=== PATIENT | male | born 1955 | race Two or more races ===

== ENCOUNTER 2018-06-21 19:39 | Inpatient (IN) | payer OTHER ==
[~2018-06-21] VITALS: Ht 180.3 cm; Wt 117.0 kg
[2018-06-21 20:32] LABS: Basophils # (auto) 0 uL; Basophils % (auto) 0.7 % (0.0-2.0); Eosinophils # (auto) 0.1 uL; Eosinophils % (auto) 1.1 % (0.0-7.0); Hematocrit 39.7 % (41.0-53.0); Hemoglobin 14.1 g/dL (13.5-17.5); Lymphocytes # (auto) 2.5 uL; Lymphocytes % (auto) 37.1 % (10.0-50.0); Mean Corpuscular Hemoglobin 32.9 pg (28.0-32.0); Mean Corpuscular Hgb Conc. 35.5 g/dL (32.0-36.0); Mean Corpuscular Volume 92.8 fL (80.0-100.0); Monocytes # (auto) 0.5 uL; Monocytes % (auto) 7.8 % (0.0-12.0); Neutrophils # (auto) 3.5 uL; Neutrophils % (auto) 53.3 % (37.0-80.0); Nucleated Red Blood Cells % 0.1 %; Platelet Count (auto) 221 10^3/uL (140-450); Red Blood Cells 4.27 10^6/uL (4.5-5.90); Red Cell Distribution Width 14.1 % (11.8-14.3); White Blood Cell 6.6 10^3/uL (4.4-10.8)
[2018-06-21 20:45] LABS: INR 1.07 (0.9-1.15); Partial Thromboplastin Time 26.6 sec (23.78-33.04); Prothrombin Time 11.4 sec (9.27-12.13)
[2018-06-21] MEDS ORDERED: MORPHINE SULFATE 4 MG/ML SYR/VIAL IV ONE (20:45)
[2018-06-21] MEDS ORDERED: ONDANSETRON HCL 4 MG/2 ML VIAL IV ONE (20:45)
[2018-06-21 20:55] LABS: Albumin 4.1 g/dL (3.4-5.0); Anion Gap 8 (5-15); Blood Urea Nitrogen 21 mg/dL (7-18); Calcium 8.9 mg/dL (8.5-10.1); Carbon Dioxide 23 mmol/L (21-32); Chloride 106 mmol/L (98-107); Glucose 110 mg/dL (74-106); Magnesium 1.4 mg/dL (1.6-2.6); Potassium 3.5 mmol/L (3.5-5.1); Sodium 137 mmol/L (136-145)
[2018-06-21 21:01] LABS: Alanine Aminotransferase 48 U/L (16-61); Alkaline Phosphatase 99 U/L (45-117); Aspartate Aminotransferase 37 U/L (15-37); BUN/Creatinine Ratio 18.3; Bilirubin, Total 0.5 mg/dL (0.2-1.0); GFR African American 82 mL/min; GFR Non-African American 68 mL/min; Total Protein 7.6 g/dL (6.4-8.2)
[2018-06-21 22:00] VITALS: BP 135/83
[2018-06-21] MEDS ORDERED: HEPARIN SODIUM (PORCINE) 5000 UNITS/ML 1ML VIAL IV ONE (22:00)
[2018-06-21] MEDS ORDERED: ASPirin 81 mg TAB PO ONE (22:00)
[2018-06-21] MEDS ORDERED: MORPHINE SULFATE 4 MG/ML SYR/VIAL IV PRN (22:30)
[2018-06-21] MEDS ORDERED: ASPirin-EC 325mg tab PO ONE (22:30)
[2018-06-21] MEDS ORDERED: NITROGLYCERIN 0.4 MG SL TAB SL PRN (22:30)
[2018-06-21] MEDS ORDERED: ONDANSETRON HCL 4 MG/2 ML VIAL IV PRN (22:30)
[2018-06-22 00:10] VITALS: BP 135/83
[2018-06-22] MEDS ORDERED: CLOP75TA28 PO (00:32)
[2018-06-22] MEDS ORDERED: ISO20T PO (00:32)
[2018-06-22] MEDS ORDERED: ACET-1603 PO (00:32)
[2018-06-22] MEDS ORDERED: ATOR1TAB PO (00:32)
[2018-06-22] MEDS ORDERED: METF-372 PO (00:32)
[2018-06-22] MEDS ORDERED: NITR0.4S29 SL (00:32)
[2018-06-22] MEDS ORDERED: ATE50T PO (00:32)
[2018-06-22] MEDS ORDERED: LISI-285 PO (00:32)
[2018-06-22] MEDS ORDERED: ALL100T PO (00:32)
[2018-06-22] MEDS ORDERED: COLC0.6T56 PO (00:32)
[2018-06-22 05:31] VITALS: BP 106/51
[2018-06-22] MEDS ORDERED: IODIXANOL 320MG/ML 100ML BTL IV ONE (07:25)
[2018-06-22] MEDS ORDERED: LIDOCAINE 2%HCL (LOCAL ANESTH.) INJ 20ML MDV ONE (07:26)
[2018-06-22] MEDS ORDERED: MIDAZOLAM HCL 1MG/1ML-2 ML VIAL ONE (07:34)
[2018-06-22] MEDS ORDERED: ANGIOMAX 250 MG VIAL IV ONE (07:34)
[2018-06-22] MEDS ORDERED: fentaNYL CITRATE 100 MCG/2 ML VL ONE (07:34)
[2018-06-22] MEDS ORDERED: SODIUM CHL 0.9% 0 ML ONE (07:34)
[2018-06-22] MEDS ORDERED: IOHEXOL 350 MG/ML 100ML IJ ONE (07:35)
[2018-06-22] MEDS ORDERED: EPTIFIBATIDE INJ (2MG/ML) 10ML VIAL IV ONE (07:39)
[2018-06-22 08:56] VITALS: BP 108/48
[2018-06-22] MEDS ORDERED: METOPROLOL TARTRATE 25 MG TAB PO SCH (10:00)
[2018-06-22] MEDS ORDERED: ASPirin 81 mg TAB PO SCH (10:00)
[2018-06-22] MEDS ORDERED: EPINEPHrine HCL 1 MG/10 ML SYRG ONE (10:47)
[2018-06-22] MEDS ORDERED: ATROPINE SULF 1 MG/10ml SYR ONE (10:47)
[2018-06-22 13:00] VITALS: BP 133/65
[2018-06-22 17:00] VITALS: BP 129/69
[2018-06-22 18:11] VITALS: BP 129/69
== END 2018-06-22 18:50 | disposition home or self-care (01) | DRG 287 ==
LOC: ER 19:39 → CATH 21:58 → TELE 22:32 → TELE-EAST 23:42
PROVIDERS: ADMIT Specialist; ATTEND Specialist
PROC: 4A023N7 Measurement of Cardiac Sampling and Pressure, Left Heart, Percutaneous Approach (ICD-10-PCS; principal; 2018-06-22)
PROC: B2111ZZ Fluoroscopy of Multiple Coronary Arteries using Low Osmolar Contrast (ICD-10-PCS; 2018-06-22)
PROC: B2151ZZ Fluoroscopy of Left Heart using Low Osmolar Contrast (ICD-10-PCS; 2018-06-22)
PROC: B3121ZZ Fluoroscopy of Left Subclavian Artery using Low Osmolar Contrast (ICD-10-PCS; 2018-06-22)
PROC: B2181ZZ Fluoroscopy of Left Internal Mammary Bypass Graft using Low Osmolar Contrast (ICD-10-PCS; 2018-06-22)
PROC: B41J1ZZ Fluoroscopy of Other Lower Arteries using Low Osmolar Contrast (ICD-10-PCS; 2018-06-22)
DX: I20.0 Unstable angina (principal); E11.51 Type 2 diabetes mellitus with diabetic peripheral angiopathy without gangrene; E78.5 Hyperlipidemia, unspecified; R56.9 Unspecified convulsions; M10.9 Gout, unspecified; I10 Essential (primary) hypertension; I25.2 Old myocardial infarction; Z95.1 Presence of aortocoronary bypass graft; Z95.5 Presence of coronary angioplasty implant and graft
CPT/HCPCS: 36415; 71045; 80053; 83735; 83880; 84443; 84484; 85025; 85379; 85610; 85730; 86850; 86900; 86901; 87081; 93005; 94761; 96374; 96375; A6257; G0378; J2250; J2405; Q9967

== ENCOUNTER 2018-07-25 20:48 | Emergency (ER) | payer OTHER ==
[~2018-07-25] VITALS: Ht 180.3 cm; Wt 117.9 kg
[~2018-07-25 20:48] MED LIST: ACET-1603 PO; ALL100T PO; ATE50T PO; ATOR1TAB PO; CLOP75TA28 PO; COLC0.6T56 PO; ISO20T PO; LISI-285 PO; METF-372 PO; NITR0.4S29 SL
[2018-07-25 21:02] VITALS: BP 144/61
== END 2018-07-25 21:07 | disposition left against medical advice (07) ==
LOC: ER 20:50
DX: R07.89 Other chest pain (principal); Z53.21 Procedure and treatment not carried out due to patient leaving prior to being seen by health care provider
CPT/HCPCS: 93005

== ENCOUNTER 2018-11-26 12:13 | Emergency (ER) | payer OTHER, MEDICARE ==
[~2018-11-26] VITALS: Ht 180.3 cm; Wt 131.5 kg
[2018-11-26] MEDS ORDERED: SODIUM CHLORIDE 0.9% 1,000 ML IV ONE (14:45)
[2018-11-26] MEDS ORDERED: MORPHINE SULF INJ 2 MG/ML SYRINGE 1ML IV ONE ×2 (14:45→21:15)
[2018-11-26] MEDS ORDERED: ONDANSETRON HCL 4 MG/2 ML VIAL IV ONE ×2 (14:45→21:15)
[2018-11-26 18:20] LABS: Basophils # (auto) 0 uL; Basophils % (auto) 0.6 % (0.0-2.0); Eosinophils # (auto) 0 uL; Eosinophils % (auto) 0.5 % (0.0-7.0); Hematocrit 37.4 % (41.0-53.0); Hemoglobin 12.7 g/dL (13.5-17.5); Lymphocytes % (auto) 28.5 % (10.0-50.0); Mean Corpuscular Hemoglobin 29.9 pg (28.0-32.0); Mean Corpuscular Hgb Conc. 33.8 g/dL (32.0-36.0); Mean Corpuscular Volume 88.4 fL (80.0-100.0); Monocytes # (auto) 0.6 uL; Monocytes % (auto) 9.3 % (0.0-12.0); Neutrophils # (auto) 4.2 uL; Neutrophils % (auto) 61.1 % (37.0-80.0); Platelet Count (auto) 192 10^3/uL (140-450); Red Blood Cells 4.23 10^6/uL (4.5-5.90); Red Cell Distribution Width 14.2 % (11.8-14.3); White Blood Cell 6.9 10^3/uL (4.4-10.8)
[2018-11-26 18:46] LABS: Albumin 3.5 g/dL (3.4-5.0); Anion Gap 10 (5-15); BUN/Creatinine Ratio 16.5; Blood Urea Nitrogen 18 mg/dL (7-18); Calcium 8.8 mg/dL (8.5-10.1); Carbon Dioxide 24 mmol/L (21-32); Chloride 108 mmol/L (98-107); GFR African American 87 mL/min; GFR Non-African American 72 mL/min; Glucose 124 mg/dL (74-106); Magnesium 1.6 mg/dL (1.6-2.6); Potassium 3.5 mmol/L (3.5-5.1); Sodium 142 mmol/L (136-145)
[2018-11-26 18:47] LABS: INR 1.12 (0.9-1.15); Partial Thromboplastin Time 27.4 sec (23.64-32.05)
[2018-11-26 18:51] LABS: Alanine Aminotransferase 32 U/L (16-61); Alkaline Phosphatase 45 U/L (45-117); Aspartate Aminotransferase 29 U/L (15-37); Bilirubin, Total 0.7 mg/dL (0.2-1.0)
[2018-11-26 21:21] VITALS: BP 138/70
== END 2018-11-26 21:40 | disposition short-term general hospital (02) ==
LOC: EDBD 12:13 → ER 12:16
DX: S13.9XXA Sprain of joints and ligaments of unspecified parts of neck, initial encounter (principal); S27.321A Contusion of lung, unilateral, initial encounter; S09.90XA Unspecified injury of head, initial encounter; E11.9 Type 2 diabetes mellitus without complications; I10 Essential (primary) hypertension; E78.5 Hyperlipidemia, unspecified; I25.2 Old myocardial infarction; Z86.73 Personal history of transient ischemic attack (TIA), and cerebral infarction without residual deficits; Z79.899 Other long term (current) drug therapy; V43.52XA Car driver injured in collision with other type car in traffic accident, initial encounter; Y93.89 Activity, other specified; Y99.8 Other external cause status; Y92.410 Unspecified street and highway as the place of occurrence of the external cause
CPT/HCPCS: 36415; 70450; 71250; 72125; 73030; 80053; 82962; 83735; 84484; 85025; 85610; 85730; 93005; 96374; 96375; 96376; 99285; J2270; J2405; J7030

== ENCOUNTER 2019-04-25 17:16 | Emergency (ER) | payer MEDICARE, OTHER ==
[~2019-04-25] VITALS: Ht 180.3 cm; Wt 121.6 kg
[2019-04-25 18:18] LABS: Basophils # (auto) 0 uL; Basophils % (auto) 0.5 % (0.0-2.0); Eosinophils # (auto) 0.1 uL; Eosinophils % (auto) 1.4 % (0.0-7.0); Hemoglobin 11.9 g/dL (13.5-17.5); Lymphocytes # (auto) 1.7 uL; Lymphocytes % (auto) 28.6 % (10.0-50.0); Mean Corpuscular Hemoglobin 28.2 pg (28.0-32.0); Mean Corpuscular Volume 85.5 fL (80.0-100.0); Monocytes # (auto) 0.6 uL; Monocytes % (auto) 9.9 % (0.0-12.0); Neutrophils # (auto) 3.6 uL; Neutrophils % (auto) 59.6 % (37.0-80.0); Platelet Count (auto) 170 10^3/uL (140-450); Red Blood Cells 4.21 10^6/uL (4.5-5.90); Red Cell Distribution Width 15.1 % (11.8-14.3)
[2019-04-25] MEDS ORDERED: ASPirin 81 mg TAB PO ONE (18:30)
[2019-04-25 18:31] LABS: Alanine Aminotransferase 31 U/L (16-61); Albumin 3.7 g/dL (3.4-5.0); Anion Gap 8 (5-15); Aspartate Aminotransferase 20 U/L (15-37); BUN/Creatinine Ratio 10.1; Blood Urea Nitrogen 13 mg/dL (7-18); Calcium 8.5 mg/dL (8.5-10.1); Carbon Dioxide 24 mmol/L (21-32); Chloride 110 mmol/L (98-107); GFR African American 72 mL/min; GFR Non-African American 59 mL/min; Glucose 117 mg/dL (74-106); Potassium 3.6 mmol/L (3.5-5.1); Sodium 142 mmol/L (136-145)
[2019-04-25 18:36] LABS: Alkaline Phosphatase 56 U/L (45-117); Bilirubin, Total 0.6 mg/dL (0.2-1.0); Total Protein 7.3 g/dL (6.4-8.2)
[2019-04-25] MEDS ORDERED: NITROGLYCERIN 0.4 MG SL TAB SL ONE (19:15)
[2019-04-26 01:25] VITALS: BP 137/58
== END 2019-04-26 01:44 | disposition short-term general hospital (02) ==
LOC: ER 17:16
DX: I24.9 Acute ischemic heart disease, unspecified (principal); E78.5 Hyperlipidemia, unspecified; I25.2 Old myocardial infarction; E10.8 Type 1 diabetes mellitus with unspecified complications; Z79.899 Other long term (current) drug therapy
CPT/HCPCS: 36415; 71045; 80053; 82962; 84484; 85025; 93005

== ENCOUNTER → 2020-04-26 | Outpatient (CLI) | payer MEDICARE ==
[~2020-04-26] VITALS: Ht 30.5 cm; Wt 0.5 kg
[~2020-04-26] MED LIST changes: +IOHEXOL 350 MG/ML 100ML IJ ONE; +SODIUM CHLORIDE 0.9% 500 ML IV ONE
[2020-04-26 08:50] VITALS: BP 123/53
[2020-04-26 09:27] VITALS: BP 114/57
[2020-04-26 09:48] VITALS: BP 123/54
[2020-04-26 11:00] VITALS: BP 121/65
== END | disposition home or self-care (01) ==
LOC: Rad HDHVI 08:46
PROVIDERS: ATTEND Internal Medicine Cardiovascular Disease
DX: E86.0 Dehydration (principal)
CPT/HCPCS: 70498; 82962; 96360; 96361; G0463; J7040; Q9967

== ENCOUNTER → 2020-04-29 | Outpatient (CLI) | payer MEDICARE ==
[~2020-04-29] MED LIST changes: -IOHEXOL 350 MG/ML 100ML IJ ONE; -SODIUM CHLORIDE 0.9% 500 ML IV ONE
== END | disposition home or self-care (01) ==
LOC: Rad HDHVI 08:09
PROVIDERS: ATTEND Internal Medicine Cardiovascular Disease
DX: I08.3 Combined rheumatic disorders of mitral, aortic and tricuspid valves (principal); R07.89 Other chest pain; R06.02 Shortness of breath
CPT/HCPCS: 93306

== ENCOUNTER → 2021-09-17 | Outpatient (CLI) | payer MEDICARE ==
[~2021-09-17] MED LIST changes: +ATOR-47 PO; -ATOR1TAB PO
[2021-09-17 10:22] LABS: Basophils # (auto) 0.1 10 ^3/uL (0-0.2); Basophils % (auto) 0.8 % (0.0-2.0); Eosinophils # (auto) 0.1 10 ^3/uL (0-0.8); Eosinophils % (auto) 1.7 % (0.0-7.0); Hematocrit 39.8 % (41.0-53.0); Hemoglobin 13.9 g/dL (13.5-17.5); Lymphocytes # (auto) 1.4 10 ^3/uL (0.4-5.4); Lymphocytes % (auto) 20.9 % (10.0-50.0); Mean Corpuscular Hemoglobin 33.1 pg (28.0-32.0); Mean Corpuscular Hgb Conc. 35.1 g/dL (32.0-36.0); Mean Corpuscular Volume 94.6 fL (80.0-100.0); Monocytes # (auto) 0.5 10 ^3/uL (0-1.3); Monocytes % (auto) 7.9 % (0.0-12.0); Neutrophils # (auto) 4.5 10 ^3/uL (1.6-8.6); Neutrophils % (auto) 68.7 % (37.0-80.0); Nucleated Red Blood Cells % 0.1 %; Red Blood Cells 4.21 10^6/uL (4.5-5.90); Red Cell Distribution Width 13.5 % (11.8-14.3); White Blood Cell 6.6 10^3/uL (4.4-10.8)
[2021-09-17 10:24] LABS: Urine Blood Negative /uL (Negative); Urine Specific Gravity 1.015 (1.001-1.035)
[2021-09-17 10:48] LABS: Free T4 (Free Thyroxine) 1.09 ng/dL (0.89-1.76); Prostate Specific Antigen 2.45 ng/mL (0.0-4.0)
[2021-09-17 11:12] LABS: Albumin 3.6 g/dL (3.4-5.0); BUN/Creatinine Ratio 13.9; Bilirubin, Total 0.8 mg/dL (0.2-1.0); Calcium 8.8 mg/dL (8.5-10.1); Total Protein 7.4 g/dL (6.4-8.2)
[2021-09-18 09:27] LABS: Uric Acid 8.6 mg/dL (3.5-7.2)
== END | disposition home or self-care (01) ==
LOC: LAB 08:15
PROVIDERS: ATTEND Internal Medicine
DX: D51.3 Other dietary vitamin B12 deficiency anemia (principal); D64.9 Anemia, unspecified; E11.9 Type 2 diabetes mellitus without complications; E55.9 Vitamin D deficiency, unspecified; I10 Essential (primary) hypertension; R00.2 Palpitations; R53.1 Weakness; R30.0 Dysuria; C61 Malignant neoplasm of prostate
CPT/HCPCS: 36415; 80053; 80061; 81003; 82306; 82607; 83036; 84153; 84403; 84439; 84443; 84550; 85025

== ENCOUNTER → 2022-01-01 | Outpatient (CLI) | payer MEDICARE ==
[2022-01-01 15:04] LABS: Potassium 3.6 mmol/L (3.5-5.1)
[2022-01-01 15:11] LABS: BUN/Creatinine Ratio 14.8; Calcium 9.1 mg/dL (8.5-10.1); Total Protein 7.6 g/dL (6.4-8.2); Uric Acid 8.7 mg/dL (3.5-7.2)
== END | disposition home or self-care (01) ==
LOC: LAB 09:22
PROVIDERS: ATTEND Internal Medicine
DX: E78.5 Hyperlipidemia, unspecified (principal); Z79.899 Other long term (current) drug therapy
CPT/HCPCS: 36415; 80053; 80061; 83036; 84550

== ENCOUNTER → 2022-04-09 | Outpatient (CLI) | payer MEDICARE ==
[2022-04-09 11:47] LABS: Albumin 4.2 g/dL (3.4-5.0); Calcium 9.7 mg/dL (8.5-10.1)
[2022-04-09 11:55] LABS: BUN/Creatinine Ratio 18.5; Total Protein 7.5 g/dL (6.4-8.2); Uric Acid 6.9 mg/dL (3.5-7.2)
== END | disposition home or self-care (01) ==
LOC: LAB 08:40
PROVIDERS: ATTEND Internal Medicine
DX: E11.9 Type 2 diabetes mellitus without complications (principal)
CPT/HCPCS: 36415; 80053; 80061; 83036; 84550

== ENCOUNTER 2022-09-13 04:58 | Inpatient (IN) | payer MEDICARE ==
[~2022-09-13] VITALS: Ht 182.9 cm; Wt 124.0 kg
[2022-09-13] VITALS (71 sets, daily range): BP systolic 7–137; BP diastolic 60–88
[2022-09-13] MEDS ORDERED: HEPARIN SODIUM (PORCINE) 5000 UNITS/ML 1ML VIAL IV ONE (05:30)
[2022-09-13] MEDS ORDERED: ASPirin 325 MG TAB NG ONE (05:30)
[2022-09-13] MEDS ORDERED: fentaNYL Drip 2500mCg/250mlNS 250 ML IV ONE (05:42)
[2022-09-13] MEDS ORDERED: ATROPINE SULF 1 MG/10ml SYR ONE (05:54)
[2022-09-13] MEDS ORDERED: EPINEPHrine HCL 1 MG/10 ML SYRG ONE (05:54)
[2022-09-13] MEDS ORDERED: ANGIOMAX 250 MG VIAL IV ONE (05:54)
[2022-09-13] MEDS ORDERED: SODIUM CHL 0.9% 50 ML ONE (05:54)
[2022-09-13] MEDS ORDERED: IODIXANOL 320MG/ML 100ML BTL IV ONE ×2 (05:56→06:28)
[2022-09-13] MEDS ORDERED: HEPARIN IN NS 1000Units/500mL 1,500 ML ONE (05:56)
[2022-09-13] MEDS ORDERED: LIDOCAINE 2%HCL (LOCAL ANESTH.) INJ 20ML MDV ONE (05:56)
[2022-09-13 06:00] LABS: Hematocrit 42.6 % (41.0-53.0); Hemoglobin 13.3 g/dL (13.5-17.5); Mean Corpuscular Hemoglobin 32.7 pg (28.0-32.0); Mean Corpuscular Hgb Conc. 31.3 g/dL (32.0-36.0); Mean Corpuscular Volume 104.5 fL (80.0-100.0); Red Blood Cells 4.07 10^6/uL (4.5-5.90); Red Cell Distribution Width 15.6 % (11.8-14.3); White Blood Cell 13.5 10^3/uL (4.4-10.8)
[2022-09-13 06:03] LABS: Alanine Aminotransferase 36 U/L (16-61); Albumin 2.9 g/dL (3.4-5.0); Anion Gap 21 (5-15); BUN/Creatinine Ratio 12.1 (10.0-20.0); Blood Alcohol < 3.0 mg/dL (0-5); Blood Urea Nitrogen 22 mg/dL (7-18); Carbon Dioxide 19 mmol/L (21-32); Chloride 106 mmol/L (98-107); GFR African American 48 mL/min; GFR Non-African American 39 mL/min; Glucose 342 mg/dL (74-106); Lipase 767 U/L (73-393); Potassium 3.3 mmol/L (3.5-5.1); Sodium 146 mmol/L (136-145)
[2022-09-13 06:06] LABS: Alkaline Phosphatase 79 U/L (45-117); Aspartate Aminotransferase 46 U/L (15-37); Bilirubin, Total 0.3 mg/dL (0.2-1.0); Total Protein 5.9 g/dL (6.4-8.2)
[2022-09-13 06:07] LABS: Acetaminophen < 2.0 ug/mL (10-30); Salicylate < 1.7 mg/dL (2.8-20.0)
[2022-09-13] MEDS ORDERED: LACTATED RINGER'S 1,000 ML IV ONE (06:30)
[2022-09-13] MEDS ORDERED: MIDAZOLAM DRIP 50 mg/50mL 50 ML IV ONE (06:34)
[2022-09-13 06:44] LABS: Basophils % (manual) 0 (0.0-2.0); Blast Cells 0; Metamyelocytes % 0; Myelocytes % 0; Promyelocytes % 0; Reactive Lymphocytes 0
[2022-09-13] MEDS ORDERED: ceFAZolin 1GM/50ML 50 ML IV ONE ×2 (07:07→08:15)
[2022-09-13 07:15] LABS: INR 1.18 (0.9-1.15); Partial Thromboplastin Time 40.4 sec (24.6-33.4)
[2022-09-13] MEDS ORDERED: NITROGLYCERIN 0.4 MG SL TAB SL PRN (07:15)
[2022-09-13] MEDS ORDERED: MORPHINE SULFATE INJ 2 MG/ml SYRG IV PRN (07:15)
[2022-09-13] MEDS ORDERED: fentaNYL CITRATE 100 MCG/2 ML VL ONE (07:20)
[2022-09-13 07:23] LABS: Urine Bacteria NONE SEEN /hpf (None Seen); Urine Blood 3+ /uL (Negative); Urine Hyaline Cast FEW /lpf (0 - 2); Urine Mucus FEW (None Seen); Urine Specific Gravity 1.022 (1.001-1.035); Urine WBC 25 /hpf (0 - 3)
[2022-09-13] MEDS ORDERED: CLOPIDOGREL 300 MG TAB ONE (07:31)
[2022-09-13 07:42] LABS: Alcohol, Urine < 3.0 mg/dL (0-10); Amphetamine Screen, Urine NEGATIVE (NEGATIVE); Barbiturate Scree,Urine NEGATIVE (NEGATIVE); Benzodiazephine Screen, Urine NEGATIVE (NEGATIVE); Cocaine Screen, Urine NEGATIVE (NEGATIVE); Opiate Scree,Urine NEGATIVE (NEGATIVE); Phencyclidine Screen, Urine NEGATIVE (NEGATIVE)
[2022-09-13 07:50] LABS: Cannabinoid Screen, Urine POSITIVE (NEGATIVE)
[2022-09-13] MEDS: MIDAZOLAM DRIP 50 mg/50mL 50 ML IV SCH ×2 (08:00→23:56)
[2022-09-13] MEDS: fentaNYL Drip 2500mCg/250mlNS 250 ML IV SCH ×2 (08:00→23:55)
[2022-09-13] MEDS ORDERED: CLOPIDOGREL BISULFATE 75 MG TAB PO ONE (08:15)
[2022-09-13] MEDS: ASPirin 81 mg TAB PO SCH (10:00)
[2022-09-13] MEDS ORDERED: methylPREDNISolone SOD SUCC 40 MG/ML VL IM ONE (11:45)
[2022-09-13] MEDS ORDERED: DEXTROSE (50%) 50ML SYRG IV PRN (11:45)
[2022-09-13] MEDS: InsuLIN REG 1unit/0.01ml Soln (100units/ml) SC SCH ×3 (12:00→23:37)
[2022-09-13] MEDS: ACCU-CHEK COMFORT CURVE STRIP VI SCH ×3 (12:23→23:39)
[2022-09-13] MEDS: SODIUM CHLORIDE 0.9% 1,000 ML IV SCH ×2 (12:26→20:09)
[2022-09-13 13:18] LABS: Band Neutrophils % (manual) 3; Eosinophils % (manual) 1 (0-7); Lymphocytes % (manual) 44 (10.0-50.0); Monocytes % (manual) 5 (0-12)
[2022-09-14] VITALS (101 sets, daily range): BP systolic 74–157; BP diastolic 38–99
[2022-09-14] MEDS: ACCU-CHEK COMFORT CURVE STRIP VI SCH ×3 (05:49→17:41)
[2022-09-14] MEDS: InsuLIN REG 1unit/0.01ml Soln (100units/ml) SC SCH ×3 (05:51→17:42)
[2022-09-14] MEDS: MIDAZOLAM DRIP 50 mg/50mL 50 ML IV SCH ×5 (06:41→17:02)
[2022-09-14 07:30] LABS: Basophils # (auto) 0 10 ^3/uL (0-0.2); Basophils % (auto) 0.2 % (0.0-2.0); Eosinophils # (auto) 0 10 ^3/uL (0-0.8); Hemoglobin 13.4 g/dL (13.5-17.5); Lymphocytes % (auto) 7.4 % (10.0-50.0); Mean Corpuscular Hemoglobin 32.4 pg (28.0-32.0); Mean Corpuscular Hgb Conc. 33.5 g/dL (32.0-36.0); Mean Corpuscular Volume 96.8 fL (80.0-100.0); Monocytes # (auto) 0.9 10 ^3/uL (0-1.3); Monocytes % (auto) 7.1 % (0.0-12.0); Neutrophils # (auto) 11.2 10 ^3/uL (1.6-8.6); Neutrophils % (auto) 85.3 % (37.0-80.0); Nucleated Red Blood Cells % 0.2 %; Red Blood Cells 4.13 10^6/uL (4.5-5.90); Red Cell Distribution Width 14.9 % (11.8-14.3); White Blood Cell 13.2 10^3/uL (4.4-10.8)
[2022-09-14 07:52] LABS: BUN/Creatinine Ratio 23.7 (10.0-20.0); Calcium 8.4 mg/dL (8.5-10.1); Magnesium 2.2 mg/dL (1.6-2.6); Potassium 4.1 mmol/L (3.5-5.1)
[2022-09-14] MEDS: NOREPINEPHRINE 8 MG/250ML KIT 250 ML IV SCH (08:00)
[2022-09-14] MEDS: SODIUM CHLORIDE 0.9% 1,000 ML IV SCH ×2 (09:45→17:40)
[2022-09-14] MEDS ORDERED: methylPREDNISolone SOD SUCC 40 MG/ML VL IV SCH (10:00)
[2022-09-14] MEDS: PANTOPRAZOLE 40 MG/10 ML VIAL INJ IV SCH (10:59)
[2022-09-14] MEDS: ASPirin 81 mg TAB PO SCH (11:00)
[2022-09-14] MEDS: CLOPIDOGREL BISULFATE 75 MG TAB PO SCH (11:00)
[2022-09-14] MEDS: fentaNYL Drip 2500mCg/250mlNS 250 ML IV SCH (13:00)
[2022-09-14] MEDS ORDERED: VANCOMYCIN PER PHARMACY 0 MG IV SCH (13:45)
[2022-09-14] MEDS ORDERED: VANCOMYCIN 1GM/250ML 250 ML IV ONE (14:00)
[2022-09-14] MEDS: ACETAMINOPHEN 325 MG TAB PO PRN (14:54)
[2022-09-14] MEDS: CEFEPIME 1GM/ 50ML 50 ML IV SCH ×2 (16:06→22:45)
[2022-09-14] MEDS ORDERED: PROPOFOL 100 ML IV ONE (18:35)
[2022-09-14] MEDS: PROPOFOL 100 ML IV SCH (18:40)
[2022-09-14] MEDS ORDERED: ACETAMINOPHEN IV 1000 MG/100ML (10MG/ML) IV ONE (19:00)
[2022-09-14] MEDS ORDERED: NOREPINEPHRINE 8 MG/250ML KIT 250 ML IV ONE (22:54)
[2022-09-14 22:56] LABS: Cholesterol 86 mg/dL (< 200)
[2022-09-14 22:59] LABS: HDL Cholesterol 37 mg/dL (40-59); LDL Cholesterol 41 mg/dL (< 100); Triglycerides 144 mg/dL (< 150)
[2022-09-14 23:21] LABS: Alcohol, Urine < 3.0 mg/dL (0-10); Amphetamine Screen, Urine NEGATIVE (NEGATIVE); Barbiturate Scree,Urine NEGATIVE (NEGATIVE); Benzodiazephine Screen, Urine POSITIVE (NEGATIVE); Cannabinoid Screen, Urine POSITIVE (NEGATIVE)
[2022-09-14 23:29] LABS: Cocaine Screen, Urine NEGATIVE (NEGATIVE); Opiate Scree,Urine NEGATIVE (NEGATIVE); Phencyclidine Screen, Urine NEGATIVE (NEGATIVE)
[2022-09-15] VITALS (83 sets, daily range): BP systolic 75–115; BP diastolic 31–77
[2022-09-15] MEDS: SODIUM CHLORIDE 0.9% 1,000 ML IV SCH ×3 (03:45→23:45)
[2022-09-15] MEDS: ACETAMINOPHEN 325 MG TAB PO PRN (05:20)
[2022-09-15 05:57] LABS: Basophils # (auto) 0.1 10 ^3/uL (0-0.2); Basophils % (auto) 0.4 % (0.0-2.0); Eosinophils # (auto) 0 10 ^3/uL (0-0.8); Eosinophils % (auto) 0.1 % (0.0-7.0); Hematocrit 38.8 % (41.0-53.0); Hemoglobin 13.1 g/dL (13.5-17.5); Lymphocytes # (auto) 2.3 10 ^3/uL (0.4-5.4); Lymphocytes % (auto) 14.5 % (10.0-50.0); Mean Corpuscular Hemoglobin 32.7 pg (28.0-32.0); Mean Corpuscular Hgb Conc. 33.7 g/dL (32.0-36.0); Mean Corpuscular Volume 97.1 fL (80.0-100.0); Monocytes # (auto) 1.4 10 ^3/uL (0-1.3); Monocytes % (auto) 8.9 % (0.0-12.0); Neutrophils # (auto) 12.1 10 ^3/uL (1.6-8.6); Neutrophils % (auto) 76.1 % (37.0-80.0); Red Blood Cells 3.99 10^6/uL (4.5-5.90); Red Cell Distribution Width 14.9 % (11.8-14.3); White Blood Cell 15.9 10^3/uL (4.4-10.8)
[2022-09-15] MEDS: InsuLIN REG 1unit/0.01ml Soln (100units/ml) SC SCH ×4 (06:00→18:00)
[2022-09-15] MEDS: ACCU-CHEK COMFORT CURVE STRIP VI SCH ×4 (06:03→18:20)
[2022-09-15 06:12] LABS: Potassium 4.2 mmol/L (3.5-5.1)
[2022-09-15 06:20] LABS: BUN/Creatinine Ratio 22.6 (10.0-20.0); Calcium 7.9 mg/dL (8.5-10.1)
[2022-09-15] MEDS: MIDAZOLAM DRIP 50 mg/50mL 50 ML IV SCH ×3 (07:00→21:59)
[2022-09-15] MEDS: PROPOFOL 100 ML IV SCH ×2 (09:00→13:26)
[2022-09-15] MEDS ORDERED: IBUPROFEN 100MG/5ML ORAL SUSP 100 MG/5 ML UD GT PRN (09:45)
[2022-09-15] MEDS: CEFEPIME 1GM/ 50ML 50 ML IV SCH ×2 (10:00→18:26)
[2022-09-15] MEDS: PANTOPRAZOLE 40 MG/10 ML VIAL INJ IV SCH (10:00)
[2022-09-15] MEDS ORDERED: OPTISON 3ml Vial for INJ IV ONE (10:37)
[2022-09-15] MEDS: predniSONE 20 MG TAB PO SCH (11:23)
[2022-09-15] MEDS: ASPirin 81 mg TAB PO SCH (11:23)
[2022-09-15] MEDS: CLOPIDOGREL BISULFATE 75 MG TAB PO SCH (11:23)
[2022-09-15 11:41] LABS: Lactic Acid w/Reflex 3.7 mmol/L (0.4-2.0)
[2022-09-15] MEDS: fentaNYL Drip 2500mCg/250mlNS 250 ML IV SCH (13:00)
[2022-09-15] MEDS ORDERED: VANCOMYCIN 1GM/250ML 250 ML IV SCH (13:00)
[2022-09-15] MEDS ORDERED: ENOXAPARIN SOD 100 MG/1 ML SYRINGE SC ONE (13:30)
[2022-09-15] MEDS ORDERED: CEFEPIME 1GM/ 50ML 50 ML IV SCH (14:00)
[2022-09-15] MEDS: VANCOMYCIN 1GM/250ML 250 ML IV SCH ×2 (14:59→22:48)
[2022-09-15] MEDS: NOREPINEPHRINE 8 MG/250ML KIT 250 ML IV SCH (19:55)
[2022-09-15] MEDS: ENOXAPARIN SOD 100 MG/1 ML SYRINGE SC SCH (21:59)
[2022-09-15] MEDS ORDERED: ATORVASTATIN 20 MG TAB PO SCH (22:00)
[2022-09-16] VITALS (60 sets, daily range): BP systolic 100–153; BP diastolic 55–95
[2022-09-16] MEDS: ACCU-CHEK COMFORT CURVE STRIP VI SCH ×3 (00:15→12:28)
[2022-09-16] MEDS: InsuLIN REG 1unit/0.01ml Soln (100units/ml) SC SCH ×3 (00:17→12:18)
[2022-09-16] MEDS: MIDAZOLAM DRIP 50 mg/50mL 50 ML IV SCH ×4 (01:38→13:50)
[2022-09-16] MEDS: CEFEPIME 1GM/ 50ML 50 ML IV SCH ×2 (01:39→10:09)
[2022-09-16] MEDS: fentaNYL Drip 2500mCg/250mlNS 250 ML IV SCH (04:44)
[2022-09-16 05:06] LABS: Basophils # (auto) 0 10 ^3/uL (0-0.2); Basophils % (auto) 0.3 % (0.0-2.0); Eosinophils # (auto) 0 10 ^3/uL (0-0.8); Hematocrit 33.9 % (41.0-53.0); Hemoglobin 11.8 g/dL (13.5-17.5); Lymphocytes # (auto) 0.9 10 ^3/uL (0.4-5.4); Lymphocytes % (auto) 7.2 % (10.0-50.0); Mean Corpuscular Hemoglobin 33.1 pg (28.0-32.0); Mean Corpuscular Hgb Conc. 34.7 g/dL (32.0-36.0); Mean Corpuscular Volume 95.3 fL (80.0-100.0); Monocytes # (auto) 0.8 10 ^3/uL (0-1.3); Monocytes % (auto) 6.3 % (0.0-12.0); Neutrophils # (auto) 10.8 10 ^3/uL (1.6-8.6); Neutrophils % (auto) 86.2 % (37.0-80.0); Red Blood Cells 3.56 10^6/uL (4.5-5.90); Red Cell Distribution Width 14.3 % (11.8-14.3); White Blood Cell 12.5 10^3/uL (4.4-10.8)
[2022-09-16 05:22] LABS: BUN/Creatinine Ratio 17.6 (10.0-20.0); Calcium 7.5 mg/dL (8.5-10.1); Potassium 3.9 mmol/L (3.5-5.1)
[2022-09-16] MEDS: NOREPINEPHRINE 8 MG/250ML KIT 250 ML IV SCH (06:42)
[2022-09-16] MEDS: VANCOMYCIN 1GM/250ML 250 ML IV SCH (07:53)
[2022-09-16] MEDS: SODIUM CHLORIDE 0.9% 1,000 ML IV SCH (09:09)
[2022-09-16] MEDS: predniSONE 20 MG TAB PO SCH (09:52)
[2022-09-16] MEDS: PANTOPRAZOLE 40 MG/10 ML VIAL INJ IV SCH (09:52)
[2022-09-16] MEDS: ASPirin 81 mg TAB PO SCH (09:53)
[2022-09-16] MEDS: ENOXAPARIN SOD 100 MG/1 ML SYRINGE SC SCH (09:53)
[2022-09-16] MEDS: CLOPIDOGREL BISULFATE 75 MG TAB PO SCH (09:53)
[2022-09-16 11:25] LABS: INR 1.02 (0.9-1.15); Partial Thromboplastin Time 37.6 sec (24.6-33.4)
[2022-09-16] MEDS: PROPOFOL 100 ML IV SCH (12:40)
== END 2022-09-16 15:36 | DRG 246 ==
LOC: ER 04:58 → EDBD 04:58 → TELE 07:17 → ICU CENTRL 07:56
PROVIDERS: ADMIT Internal Medicine Interventional Cardiology; ATTEND Internal Medicine Pulmonary Disease
PROC: 027034Z Dilation of Coronary Artery, One Artery with Drug-eluting Intraluminal Device, Percutaneous Approach (ICD-10-PCS; principal; 2022-09-13)
PROC: 4A023N7 Measurement of Cardiac Sampling and Pressure, Left Heart, Percutaneous Approach (ICD-10-PCS; 2022-09-13)
PROC: B211YZZ Fluoroscopy of Multiple Coronary Arteries using Other Contrast (ICD-10-PCS; 2022-09-13)
PROC: B212YZZ Fluoroscopy of Single Coronary Artery Bypass Graft using Other Contrast (ICD-10-PCS; 2022-09-13)
PROC: B240ZZ3 Ultrasonography of Single Coronary Artery, Intravascular (ICD-10-PCS; 2022-09-13)
PROC: 5A1945Z Respiratory Ventilation, 24-96 Consecutive Hours (ICD-10-PCS; 2022-09-13)
PROC: 0BH17EZ Insertion of Endotracheal Airway into Trachea, Via Natural or Artificial Opening (ICD-10-PCS; 2022-09-13)
PROC: 5A12012 Performance of Cardiac Output, Single, Manual (ICD-10-PCS; 2022-09-13)
DX: T82.855A Stenosis of coronary artery stent, initial encounter (principal); G93.41 Metabolic encephalopathy; I21.19 ST elevation (STEMI) myocardial infarction involving other coronary artery of inferior wall; J80 Acute respiratory distress syndrome; I47.20 Ventricular tachycardia, unspecified; J44.1 Chronic obstructive pulmonary disease with (acute) exacerbation; E87.20 Acidosis, unspecified; J93.82 Other air leak; Z20.822 Contact with and (suspected) exposure to COVID-19; I46.2 Cardiac arrest due to underlying cardiac condition; I49.01 Ventricular fibrillation; E78.5 Hyperlipidemia, unspecified; E11.9 Type 2 diabetes mellitus without complications; I10 Essential (primary) hypertension; L40.9 Psoriasis, unspecified; I25.10 Atherosclerotic heart disease of native coronary artery without angina pectoris; I35.0 Nonrheumatic aortic (valve) stenosis; E66.9 Obesity, unspecified; Y82.8 Other medical devices associated with adverse incidents; Z79.02 Long term (current) use of antithrombotics/antiplatelets; Z79.84 Long term (current) use of oral hypoglycemic drugs; Z82.0 Family history of epilepsy and other diseases of the nervous system; Z82.49 Family history of ischemic heart disease and other diseases of the circulatory system; Z95.1 Presence of aortocoronary bypass graft; Y92.89 Other specified places as the place of occurrence of the external cause; I25.2 Old myocardial infarction; Z68.37 Body mass index [BMI] 37.0-37.9, adult
CPT/HCPCS: 36415; 36600; 51702; 71045; 80048; 80053; 80061; 80202; 80307; 80320; 80329; 81001; 82010; 82550; 82805; 82962; 83036; 83605; 83690; 83735; 83880; 83930; 84443; 84484; 85007; 85025; 85027; 85610; 85730; 87040; 87070; 87076; 87077; 87081; 87086; 87205; 87426; 87804; 92928; 92950; 93306; 93459; 93925; 94002; 94003; 95819; 99152; 99153; 99291; C9113; G0378; J0131; J0690; J2250; J2704; Q9956; Q9967